=== PATIENT | female | born 1990 | race Two or more races ===

== ENCOUNTER 2024-01-09 06:17 | Day surgery (SDC) | payer BC, SELFPAY ==
[2024-01-04 07:11] VITALS: BMI 24.6
[2024-01-04 08:42] LABS: % Basophils 0.9 % (0-2); % Eosinophils 4.8 % (0-6); % Immature Granulocytes 0.2 % (0-0.5); % Lymphocytes 36.8 % (20.5-51.1); % Monocytes 7.5 % (1.7-9.3); % Neutrophils 49.8 % (42.2-75.2); Absolute Eosinophils 0.2 10^3/uL (0-0.7); Absolute Lymphocytes 1.7 10^3/uL (1.2-3.4); Absolute Monocytes 0.3 10^3/uL (0.1-0.6); Absolute Neutrophils 2.3 10^3/uL (1.4-6.5); Hematocrit 35.1 % (37.0-47.0); Hemoglobin 11.9 g/dL (12.0-16.0); Mean Corp Hgb Conc. 33.9 g/dL (33.0-37.0); Mean Corpuscular Hgb 28.4 pg (27.0-31.0); Mean Corpuscular Volume 83.8 fL (81.0-99.0); Mean Platelet Volume 10.8 fL (7.4-10.4); Nucleated Red Blood Cells % 0 %; Platelet Count 339 10^3/uL (130-400); Red Blood Cell Count 4.19 10^6/uL (4.20-5.40); Red Cell Dist. Width 13.3 % (11.5-14.5); White Blood Cell Count 4.6 10^3/uL (4.8-10.8)
[2024-01-04 09:36] LABS: Blood Urea Nitrogen 14 mg/dl (7-17); Calcium 9.9 mg/dl (8.4-10.2); Carbon Dioxide 26 mmol/L (22-30); Chloride 106 mmol/L (98-107); Estimated Creatinine Clearance 95 ml/min; Glucose 95 mg/dl (70-99); Potassium 4.9 mmol/L (3.5-5.1); Sodium 140 mmol/L (135-145); eGFR > 60.00
[2024-01-04 09:50] LABS: Beta HCG Quantitative < 2.39 mIU/ml
[2024-01-09] VITALS (10 sets, daily range): BP systolic 109–126; BP diastolic 65–96; BMI 24.6
[2024-01-09] MEDS: NORMOSOL-R 1000 IV (08:14)
[2024-01-09] MEDS: TYLENOL 1000 MG PO (08:15)
[2024-01-09] MEDS: NEURONTIN 100 MG PO (08:17)
--- NOTE | 2024-01-09 08:33 | W.SUR.PREOP ---
Pre-Operative Surgical Note
-
I have examined this patient prior to the performance of the scheduled procedure.
The patient's condition is unchanged from the time of the current History and
Physical and the patient is able to undergo the scheduled procedure.
--- NOTE | 2024-01-09 10:33 | W.IMMPOSTOP ---
Surgical Immed Post Op Note
-
Primary Surgeon: Jess Neff DO
[place] Roofer Helper: CRISTINA Valdez
Pre-op Diagnosis: Tubal factor infertility, bilateral hydrosalpinx
Post-op Diagnosis: same
Procedure Performed: Laparoscopic bilateral salpingectomy
Anesthesia Type: general ET, Dr. Rankin
Specimen / Cultures: bilateral fallopian tubes
Estimated Blood Loss: 10ml
Complications: none
Operative Findings: Normal appearing uterus, sounded to 8cm. Normal appearing ovaries bilaterally. Bilateral hydrosalpinx noted. No evidence of endometriosis.
Area of peritoneal puckering in cul de sac but no endometriosis lesions.
Counts correct times 2.
Stable to recovery.
[2024-01-09] MEDS: DEMEROL 12.5 MG IV (10:54)
== END 2024-01-09 12:55 | disposition home or self-care (01) ==
LOC: SDS 06:17
PROVIDERS: ATTENDING PHYSICIAN Obstetrics & Gynecology; FAMILY PHYSICIAN Internal Medicine
DX: N70.11 Chronic salpingitis (principal); N97.1 Female infertility of tubal origin
CPT/HCPCS: 58661; 88305; 80048; 84702; 85025; 86850; 86900; 86901; C1776

== ENCOUNTER → 2024-04-26 11:00 | Outpatient (REF) | payer BC, SELFPAY | LOC: CPAP 11:00 | PROVIDERS: ATTENDING PHYSICIAN Nurse Practitioner Family | DX: Z11.3 Encounter for screening for infections with a predominantly sexual mode of transmission (principal) | CPT/HCPCS: 36415; 87491; 87591 ==

== ENCOUNTER → 2024-04-27 10:31 | Outpatient (REF) | payer BC, SELFPAY ==
[2024-04-27 11:05] LABS: Urine Albumin Negative (Neg - Trace); Urine Bilirubin Negative (Negative); Urine Character Clear (Clear); Urine Color Yellow; Urine Glucose Negative (Negative); Urine Ketone Negative (Negative); Urine Leukocyte Trace (Negative); Urine Nitrite Negative (Negative); Urine Occult Blood Negative (Negative); Urine Urobilinogen Negative (Neg - 1+)
[2024-04-27 11:06] LABS: % Basophils 0.3 % (0-2); % Eosinophils 2.2 % (0-6); % Immature Granulocytes 0.4 % (0-0.5); % Lymphocytes 20.7 % (20.5-51.1); % Monocytes 7.9 % (1.7-9.3); % Neutrophils 68.5 % (42.2-75.2); Absolute Eosinophils 0.2 10^3/uL (0-0.7); Absolute Lymphocytes 1.9 10^3/uL (1.2-3.4); Absolute Monocytes 0.7 10^3/uL (0.1-0.6); Absolute Neutrophils 6.4 10^3/uL (1.4-6.5); Hematocrit 34.7 % (37.0-47.0); Hemoglobin 11.8 g/dL (12.0-16.0); Mean Corpuscular Hgb 28.1 pg (27.0-31.0); Mean Corpuscular Volume 82.6 fL (81.0-99.0); Mean Platelet Volume 9.7 fL (7.4-10.4); Nucleated Red Blood Cells % 0 %; Platelet Count 287 10^3/uL (130-400); Red Cell Dist. Width 13.7 % (11.5-14.5); White Blood Cell Count 9.3 10^3/uL (4.8-10.8)
[2024-04-27 11:16] LABS: Urine Squamous Cell >30 /LPF (Few)
[2024-04-27 11:17] LABS: Urine Bacteria Many (Negative)
[2024-04-27 12:19] LABS: Glycohemoglobin (HgbA1c) 5.3 % (4.0-5.6)
[2024-04-29 18:25] LABS: Hepatitis B Surface Antigen Negative (Negative)
[2024-04-29 20:02] LABS: Rubella Positive
== END ==
LOC: REG 10:31
PROVIDERS: ATTENDING PHYSICIAN Nurse Practitioner Family; FAMILY PHYSICIAN Internal Medicine
DX: Z32.01 Encounter for pregnancy test, result positive (principal)
CPT/HCPCS: 36415; 80055; 81003; 81015; 83036; 84702; 87389

== ENCOUNTER → 2024-05-20 13:24 | Outpatient (REF) | payer BC, SELFPAY | LOC: PNTC 13:24 | PROVIDERS: ATTENDING PHYSICIAN Obstetrics & Gynecology | DX: Z36.0 Encounter for antenatal screening for chromosomal anomalies (principal); Z36.82 Encounter for antenatal screening for nuchal translucency | CPT/HCPCS: 76801; 76813 ==

== ENCOUNTER → 2024-07-01 14:55 | Outpatient (REF) | payer BC, SELFPAY | LOC: CPAP 14:55 | PROVIDERS: ATTENDING PHYSICIAN Obstetrics & Gynecology | DX: O09.512 Supervision of elderly primigravida, second trimester (principal) | CPT/HCPCS: 87491; 87591 ==

== ENCOUNTER → 2024-07-11 08:36 | Outpatient (REF) | payer BC, SELFPAY | LOC: PNTC 08:36 | PROVIDERS: ATTENDING PHYSICIAN Obstetrics & Gynecology | DX: O09.519 Supervision of elderly primigravida, unspecified trimester (principal) | CPT/HCPCS: 76811 ==

== ENCOUNTER → 2024-07-22 15:37 | Outpatient (REF) | payer BC, SELFPAY ==
[2024-07-22 19:23] LABS: Hepatitis C Antibody Negative (Negative)
== END ==
LOC: REG 15:37
PROVIDERS: ATTENDING PHYSICIAN Obstetrics & Gynecology
DX: O09.512 Supervision of elderly primigravida, second trimester (principal)
CPT/HCPCS: 36415; 82105; 86803

== ENCOUNTER → 2024-08-31 09:57 | Outpatient (REF) | payer BC, SELFPAY ==
[2024-08-31 11:24] LABS: % Basophils 0.5 % (0-2); % Eosinophils 1.5 % (0-6); % Lymphocytes 17.6 % (20.5-51.1); % Monocytes 6.4 % (1.7-9.3); Absolute Basophils 0.1 10^3/uL (0-0.2); Absolute Eosinophils 0.2 10^3/uL (0-0.7); Absolute Immature Granulocytes 0.2 10^3/uL (0-0.05); Absolute Monocytes 0.7 10^3/uL (0.1-0.6); Absolute Neutrophils 8.1 10^3/uL (1.4-6.5); Hematocrit 30.3 % (37.0-47.0); Hemoglobin 10.5 g/dL (12.0-16.0); Mean Corp Hgb Conc. 34.7 g/dL (33.0-37.0); Mean Corpuscular Hgb 30.1 pg (27.0-31.0); Mean Corpuscular Volume 86.8 fL (81.0-99.0); Mean Platelet Volume 10.6 fL (7.4-10.4); Nucleated Red Blood Cells % 0 %; Platelet Count 233 10^3/uL (130-400); Red Blood Cell Count 3.49 10^6/uL (4.20-5.40); Red Cell Dist. Width 13.6 % (11.5-14.5); White Blood Cell Count 11.2 10^3/uL (4.8-10.8)
[2024-08-31 11:53] LABS: 1 Hour after 50gm 182 mg/dl
== END ==
LOC: REG 09:57
PROVIDERS: ATTENDING PHYSICIAN Student in an Organized Health Care Education/Training Program
DX: Z34.93 Encounter for supervision of normal pregnancy, unspecified, third trimester (principal)
CPT/HCPCS: 36415; 82950; 85025; 86780

== ENCOUNTER → 2024-09-02 14:58 | Outpatient (REF) | payer BC, SELFPAY | LOC: PNTC 14:58 | PROVIDERS: ATTENDING PHYSICIAN Obstetrics & Gynecology | DX: O09.519 Supervision of elderly primigravida, unspecified trimester (principal) | CPT/HCPCS: 76816 ==

== ENCOUNTER → 2024-09-09 06:42 | Outpatient (REF) | payer BC, SELFPAY ==
[2024-09-09 07:22] LABS: Glucose for Tolerance Test 94 mg/dl
[2024-09-09 09:10] LABS: Glucose for Tolerance Test 221 mg/dl
[2024-09-09 13:58] LABS: Glucose for Tolerance Test 171 mg/dl
[2024-09-09 14:05] LABS: Glucose for Tolerance Test 136 mg/dl
== END ==
LOC: REG 06:42
PROVIDERS: ATTENDING PHYSICIAN Obstetrics & Gynecology
DX: Z34.90 Encounter for supervision of normal pregnancy, unspecified, unspecified trimester (principal)
CPT/HCPCS: 36415; 82951

== ENCOUNTER → 2024-09-16 14:04 | Outpatient (REF) | payer BC, SELFPAY ==
--- NOTE | 2024-09-16 12:28 | PN.DIAED06 ---
Meal Plans - Regular
- Meal Plan
Diabetic Meal Plan Name: 1800 calories
Breakfast - Total Carbohydrate (grams): 45
Breakfast - Starch Carbohydrate: 0
Breakfast - Fruit Carbohydrate: 0
Breakfast - Milk Carbohydrate: 0
Breakfast - Nonstarchy Vegetables: Yes
Breakfast - Meat/Protein: 1
Breakfast - Fat: 2
Morning Snack - Total Carbohydrate (grams): 15
Morning Snack - Starch Carbohydrate: 0
Morning Snack - Fruit Carbohydrate: 0
Morning Snack - Milk Carbohydrate: 0
Morning Snack - Nonstarchy Vegetables: Yes
Morning Snack - Meat/Protein: 0.5
Morning Snack - Fat: 0
Lunch - Total Carbohydrate (grams): 45
Lunch - Starch Carbohydrate: 0
Lunch - Fruit Carbohydrate: 0
Lunch - Milk Carbohydrate: 0
Lunch - Nonstarchy Vegetables: Yes
Lunch - Meat/Protein: 3
Lunch - Fat: 1
Afternoon Snack - Total Carbohydrate (grams): 15
Afternoon Snack - Starch Carbohydrate: 0
Afternoon Snack - Fruit Carbohydrate: 0
Afternoon Snack - Milk Carbohydrate: 0
Afternoon Snack - Nonstarchy Vegetables: Yes
Afternoon Snack - Meat/Protein: 0.5
Afternoon Snack - Fat: 0
Dinner - Total Carbohydrate (grams): 45
Dinner - Starch Carbohydrate: 0
Dinner - Fruit Carbohydrate: 0
Dinner - Milk Carbohydrate: 0
Dinner - Nonstarchy Vegetables: Yes
Dinner - Meat/Protein: 3
Dinner - Fat: 2
Evening Snack - Total Carbohydrate (grams): 15
Evening Snack - Starch Carbohydrate: 0
Evening Snack - Fruit Carbohydrate: 0
Evening Snack - Milk Carbohydrate: 0
Evening Snack - Nonstarchy Vegetables: Yes
Evening Snack - Meat/Protein: 0
Evening Snack - Fat: 0
Meal Plan - Gestational
- Breakfast
Gestational Diabetes Meal Plan Name: 1800 calories
Breakfast - Total Carbohydrate (grams): 30
Breakfast - Starch Carbohydrate: 1
Breakfast - Fruit Carbohydrate: 0
Breakfast - Milk Carbohydrate: 1
Breakfast - Nonstarchy Vegetables: Yes
Breakfast - Meat/Protein: 1
Breakfast - Fat: 2
- Morning Snack
Morning Snack - Total Carbohydrate (grams): 30
Morning Snack - Starch Carbohydrate: 1
Morning Snack - Fruit Carbohydrate: 0
Morning Snack - Milk Carbohydrate: 1
Morning Snack - Nonstarchy Vegetables: Yes
Morning Snack - Meat/Protein: 0.5
Morning Snack - Fat: 0
- Lunch
Lunch - Total Carbohydrate (grams): 45
Lunch - Starch Carbohydrate: 2
Lunch - Fruit Carbohydrate: 1
Lunch - Milk Carbohydrate: 0
Lunch - Nonstarchy Vegetables: Yes
Lunch - Meat/Protein: 2
Lunch - Fat: 1
- Afternoon Snack
Afternoon Snack - Total Carbohydrate (grams): 30
Afternoon Snack - Starch Carbohydrate: 1
Afternoon Snack - Fruit Carbohydrate: 1
Afternoon Snack - Milk Carbohydrate: 0
Afternoon Snack - Nonstarchy Vegetables: Yes
Afternoon Snack - Meat/Protein: 1
Afternoon Snack - Fat: 0
- Dinner
Dinner - Total Carbohydrate (grams): 45
Dinner - Starch Carbohydrate: 2
Dinner - Fruit Carbohydrate: 0
Dinner - Milk Carbohydrate: 1
Dinner - Nonstarchy Vegetables: Yes
Dinner - Meat/Protein: 2
Dinner - Fat: 2
- Evening Snack
Evening Snack - Total Carbohydrate (grams): 30
Evening Snack - Starch Carbohydrate: 1
Evening Snack - Fruit Carbohydrate: 0
Evening Snack - Milk Carbohydrate: 1
Evening Snack - Nonstarchy Vegetables: Yes
Evening Snack - Meat/Protein: 1
Evening Snack - Fat: 1
--- NOTE | 2024-09-17 11:36 | PN.DE ---
Diabetes Education
- -
09/16/2024 GESTATIONAL DIABETES CONSULT
Met with Ms. Christianson and her today, G1, P0, with JOHN 11/28/[birth year]24 here today for medical nutrition therapy.
Explained glucose metabolism in body and what occurs during to cause increase blood sugar. Discussed importance of keeping BS well controlled to avoid complications to the baby during and after (macrosomia, hypoglycemia). Explained
to Kenia that she is at increased risk of developing T2DM in the future, she states both of her parents have diabetes.
Discussed macronutrients, provided with 1800 gustavo GDM meal plan, she has a good understanding of healthy nutrition and has been trying to eat healthy since finding out that she has GDM with this .
Discussed physical activity, however, she is currently not exercising. Emphasized importance of physical activity and it's impact on blood glucose levels.
She plans to take walks after lunch.
Kenia presented to the appointment with an Accu-Chek glucometer she obtained from her parents, She did contact [facility] [employer] and she is waiting on faxed approval of her account, she states our office is to receive a fax from [facility] [employer] or she will
contact us to place an order for supplies. She states that [employer] is the preferred brand. Reviewed proper testing technique, testing sites and testing pattern. She is aware to test FBS and 2 hr pp each meal. Expected results for FBS <95 mg/dl
and 2 hr pp <120 mg/dl. Review of her glucose log shows a range of FBG 95 and 2 hrs PP of 150's.
A new glucose log sheet was provided for her to continue recording results. Kenia will send a 4-day meal log with all her FBG and 2hr Post prandial glucose numbers to this office for review. In addition, she will send all her glucose readings to
Petrona at [facility] every Monday.
She was encouraged to reach out should she require insulin.
== END ==
LOC: DES 14:04
PROVIDERS: ATTENDING PHYSICIAN Obstetrics & Gynecology
DX: O24.419 Gestational diabetes mellitus in pregnancy, unspecified control (principal)
CPT/HCPCS: 99078

== ENCOUNTER → 2024-09-30 14:54 | Outpatient (REF) | payer BC, SELFPAY | LOC: PNTC 14:54 | PROVIDERS: ATTENDING PHYSICIAN Obstetrics & Gynecology | DX: O24.419 Gestational diabetes mellitus in pregnancy, unspecified control (principal) | CPT/HCPCS: 76816 ==

== ENCOUNTER → 2024-10-16 15:14 | Outpatient (REF) | payer BC, SELFPAY | LOC: PNTC 15:14 | PROVIDERS: ATTENDING PHYSICIAN Obstetrics & Gynecology | DX: O24.410 Gestational diabetes mellitus in pregnancy, diet controlled (principal); O09.513 Supervision of elderly primigravida, third trimester | CPT/HCPCS: 59025; 76815 ==

== ENCOUNTER → 2024-10-21 14:00 | Outpatient (REF) | payer BC, SELFPAY | LOC: PNTC 14:00 | PROVIDERS: ATTENDING PHYSICIAN Obstetrics & Gynecology | DX: O09.513 Supervision of elderly primigravida, third trimester (principal); O24.410 Gestational diabetes mellitus in pregnancy, diet controlled | CPT/HCPCS: 59025; 76815 ==

== ENCOUNTER → 2024-10-28 15:09 | Outpatient (REF) | payer BC, SELFPAY | LOC: PNTC 15:09 | PROVIDERS: ATTENDING PHYSICIAN Obstetrics & Gynecology | DX: O09.513 Supervision of elderly primigravida, third trimester (principal); O24.410 Gestational diabetes mellitus in pregnancy, diet controlled | CPT/HCPCS: 59025; 76816 ==

== ENCOUNTER → 2024-11-04 15:05 | Outpatient (REF) | payer BC, SELFPAY | LOC: PNTC 15:05 | PROVIDERS: ATTENDING PHYSICIAN Obstetrics & Gynecology | DX: O24.410 Gestational diabetes mellitus in pregnancy, diet controlled (principal); O09.513 Supervision of elderly primigravida, third trimester | CPT/HCPCS: 59025; 76815 ==

== ENCOUNTER → 2024-11-08 14:01 | Outpatient (REF) | payer BC, SELFPAY | LOC: CLAB 14:01 | PROVIDERS: ATTENDING PHYSICIAN Obstetrics & Gynecology | DX: Z36.85 Encounter for antenatal screening for Streptococcus B (principal); O09.513 Supervision of elderly primigravida, third trimester | CPT/HCPCS: 87070 ==

== ENCOUNTER → 2024-11-12 17:05 | Outpatient (REF) | payer BC, SELFPAY | LOC: PNTC 17:05 | PROVIDERS: ATTENDING PHYSICIAN Obstetrics & Gynecology | DX: O24.410 Gestational diabetes mellitus in pregnancy, diet controlled (principal); O09.513 Supervision of elderly primigravida, third trimester | CPT/HCPCS: 59025; 76815 ==

== ENCOUNTER → 2024-11-18 15:04 | Outpatient (REF) | payer BC, SELFPAY | LOC: PNTC 15:04 | PROVIDERS: ATTENDING PHYSICIAN Obstetrics & Gynecology | DX: O24.410 Gestational diabetes mellitus in pregnancy, diet controlled (principal); O09.513 Supervision of elderly primigravida, third trimester | CPT/HCPCS: 59025; 76815 ==

== ENCOUNTER → 2024-11-25 15:06 | Outpatient (REF) | payer BC, SELFPAY | LOC: PNTC 15:06 | PROVIDERS: ATTENDING PHYSICIAN Obstetrics & Gynecology | DX: O24.410 Gestational diabetes mellitus in pregnancy, diet controlled (principal); O09.513 Supervision of elderly primigravida, third trimester | CPT/HCPCS: 59025; 76816 ==

== ENCOUNTER 2024-11-26 19:37 | Inpatient (IN) | payer BC, SELFPAY ==
[2024-11-26 21:05] LABS: Glucose - Point of Care 92 mg/dl (70-99)
[2024-11-26] MEDS: CYTOTEC 50 MICROGRAM PO (21:33)
[2024-11-26 21:44] VITALS: BP 119/81; BMI 27.3
[2024-11-26 21:46] LABS: % Basophils 0.5 % (0-2); % Eosinophils 1.3 % (0-6); % Immature Granulocytes 0.6 % (0-0.5); % Lymphocytes 23.8 % (20.5-51.1); % Monocytes 7.8 % (1.7-9.3); Absolute Basophils 0.1 10^3/uL (0-0.2); Absolute Eosinophils 0.1 10^3/uL (0-0.7); Absolute Immature Granulocytes 0.1 10^3/uL (0-0.05); Absolute Lymphocytes 2.3 10^3/uL (1.2-3.4); Absolute Monocytes 0.8 10^3/uL (0.1-0.6); Absolute Neutrophils 6.4 10^3/uL (1.4-6.5); Hematocrit 34.6 % (37.0-47.0); Hemoglobin 11.6 g/dL (12.0-16.0); Mean Corp Hgb Conc. 33.5 g/dL (33.0-37.0); Mean Corpuscular Hgb 26.7 pg (27.0-31.0); Mean Corpuscular Volume 79.7 fL (81.0-99.0); Mean Platelet Volume 10.4 fL (7.4-10.4); Nucleated Red Blood Cells % 0 %; Platelet Count 252 10^3/uL (130-400); Red Blood Cell Count 4.34 10^6/uL (4.20-5.40); Red Cell Dist. Width 14.5 % (11.5-14.5); White Blood Cell Count 9.8 10^3/uL (4.8-10.8)
[2024-11-27] MEDS: LR 1000 IV ×4 (00:56→18:21)
[2024-11-27 01:05] LABS: Glucose - Point of Care 84 mg/dl (70-99)
[2024-11-27] MEDS: CYTOTEC PO ×2 (03:01→19:47)
[2024-11-27] MEDS: CYTOTEC 25 MICROGRAM PO (03:08)
[2024-11-27 05:01] LABS: Glucose - Point of Care 89 mg/dl (70-99)
[2024-11-27 08:31] LABS: Glucose - Point of Care 88 mg/dl (70-99)
[2024-11-27] MEDS: CYTOTEC 50 MICROGRAM PO ×3 (08:37→19:47)
[2024-11-27 12:41] LABS: Glucose - Point of Care 83 mg/dl (70-99)
[2024-11-27 16:38] LABS: Glucose - Point of Care 88 mg/dl (70-99)
[2024-11-27] MEDS: STADOL 1 MG IV ×2 (18:22→20:32)
[2024-11-27 20:26] LABS: Glucose - Point of Care 88 mg/dl (70-99)
[2024-11-28 00:38] LABS: Glucose - Point of Care 85 mg/dl (70-99)
[2024-11-28] MEDS: LR 1000 IV (01:00)
[2024-11-28] MEDS: BICITRA 30 ML PO (02:59)
[2024-11-28] MEDS: ANCEF 10 IV (02:59)
[2024-11-28] MEDS: TYLENOL 1000 MG PO (02:59)
[2024-11-28 03:59] LABS: Cord ABG Comment CORD BLOOD
[2024-11-28 04:01] LABS: B.E. Cord ABG -8.1 mMOL/L; HCO3 Cord ABG 22.6 mmol/L; O2 Saturation % Cord ABG 6.6 %; PCO2 Cord ABG 65 mmHg; PO2 Cord ABG 7 mmHg; pH Cord ABG 7.15
[2024-11-28 04:04] LABS: HCO3 Cord ABG 18.8 mmol/L; O2 Saturation % Cord ABG 28.3 %; PCO2 Cord ABG 46 mmHg; PO2 Cord ABG 22 mmHg; pH Cord ABG 7.22
[2024-11-28] MEDS: TORADOL 15 MG IV ×3 (07:15→19:30)
[2024-11-28] MEDS: PRENATAL PLUS 1 TABLET PO (08:06)
[2024-11-28] MEDS: TYLENOL 650 MG PO (08:07)
--- NOTE | 2024-11-28 08:09 | W.PN.ANS.POP ---
Anesthesia Post Operative
- Anesthesia Post Op Note
Vital Signs Stable-See Nursing Note: Yes
Airway Patent: Yes
Adequate Pain Control: Yes
Change in Mental Status: No
Current Postoperative Nausea & Vomiting: No
Anesthesia Complications: No
General Anesthetic Recall: No
Unplanned Admission: No
Post Op Hydration Adequate: Yes
[2024-11-28] MEDS: MYLICON 80 MG PO (09:56)
[2024-11-28] MEDS: SENOKOT-S 1 TABLET PO (14:43)
[2024-11-29] MEDS: TORADOL 15 MG IV (01:30)
[2024-11-29] MEDS: MYLICON 80 MG PO (01:48)
[2024-11-29] MEDS: TYLENOL 650 MG PO ×4 (05:05→19:50)
[2024-11-29 06:16] LABS: Hematocrit 27.5 % (37.0-47.0); Hemoglobin 9.3 g/dL (12.0-16.0); Mean Corp Hgb Conc. 33.8 g/dL (33.0-37.0); Mean Corpuscular Hgb 27.4 pg (27.0-31.0); Mean Corpuscular Volume 81.1 fL (81.0-99.0); Mean Platelet Volume 10.6 fL (7.4-10.4); Platelet Count 220 10^3/uL (130-400); Red Blood Cell Count 3.39 10^6/uL (4.20-5.40); Red Cell Dist. Width 14.6 % (11.5-14.5); White Blood Cell Count 12.9 10^3/uL (4.8-10.8)
[2024-11-29] MEDS: PRENATAL PLUS 1 TABLET PO (08:36)
[2024-11-29] MEDS: MOTRIN 600 MG PO ×3 (09:11→21:14)
[2024-11-29] MEDS: SENOKOT-S 1 TABLET PO (15:10)
[2024-11-29 17:50] LABS: Syphilis/T. pallidum Ab Reflex Negative (Negative)
[2024-11-30] MEDS: TYLENOL 650 MG PO ×3 (00:08→17:32)
[2024-11-30] MEDS: MOTRIN 600 MG PO ×3 (03:14→16:41)
[2024-11-30] MEDS: PERCOCET 5/325 1 TABLET PO ×3 (04:07→22:05)
[2024-11-30] MEDS: PRENATAL PLUS 1 TABLET PO (09:22)
[2024-11-30] MEDS: SENOKOT-S 1 TABLET PO (09:22)
[2024-11-30] MEDS: FEOSOL 325 MG PO (09:22)
[2024-12-01] MEDS: MOTRIN 600 MG PO ×2 (01:46→08:34)
[2024-12-01] MEDS: TYLENOL 650 MG PO (05:51)
[2024-12-01] MEDS: SENOKOT-S 1 TABLET PO (08:34)
[2024-12-01] MEDS: FEOSOL 325 MG PO (08:34)
[2024-12-01] MEDS: PRENATAL PLUS 1 TABLET PO (08:34)
--- NOTE | 2024-12-01 09:52 | W.DS.TRANS ---
DC Summary - Senior Business Analyst
-
Discharge Instructions:
Discharge Diagnosis/Procedures 40 wks delivered, gestational diabetes
, diet controlled, IVF , elective
induction of labor, cervical ripening, Cook
balloon catheter placement, persistent category
2 tracing/nonreassuring heart rate pattern
remote from delivery/ intolerance of labor
. Primary low transverse section.
Diet Regular
Activity No strenuous activity
Driving Restrictions No driving for 2 weeks
Bathing Restrictions OK to Shower
Instructions:
Stand-Alone Forms: LDRP Delivery
Changes to Home Medications: No
Discharge Medications:
DC Medications w/original date entered in [facility]
folic acid 1 mg tablet 1 mg PO DAILY 01/04/24
[id number]-[id number]-[id number] 1 mg tablet 1 tab PO DAILY 01/04/24
acetaminophen 325 mg tablet 650 mg (2 x 325 mg) PO Q4HPRN PRN mild pain #0 tabs 11/28/24
ibuprofen 600 mg tablet 600 mg PO Q6HPRN PRN cramps #0 tabs 11/28/24
oxycodone-acetaminophen 5 mg-325 mg tablet 1 tab PO Q4HPRN PRN moderate pain #10 tabs 12/01/24
Home Medication Changes
Pending Results: Yes (placental pathology)
Total time spent discharging patient (in min): 30
[2024-12-01] MEDS: PERCOCET 5/325 1 TABLET PO (11:53)
== END 2024-12-01 12:26 | disposition home or self-care (01) | DRG 788 ==
LOC: LDRP 19:37
PROVIDERS: Obstetrics & Gynecology; ADMITTING PHYSICIAN Obstetrics & Gynecology
PROC: 3E0P7VZ Introduction of Hormone into Female Reproductive, Via Natural or Artificial Opening (ICD-10-PCS; 2024-11-26)
PROC: 0U7C7DJ Dilation of Cervix with Intraluminal Device, Temporary, Via Natural or Artificial Opening (ICD-10-PCS; 2024-11-27)
PROC: 10D00Z1 Extraction of Products of Conception, Low, Open Approach (ICD-10-PCS; 2024-11-28)
DX: O24.420 Gestational diabetes mellitus in childbirth, diet controlled (principal); O76 Abnormality in fetal heart rate and rhythm complicating labor and delivery; Z3A.39 39 weeks gestation of pregnancy; Z37.0 Single live birth
CPT/HCPCS: 88307; 82803; 82962; 85025; 85027; 86780; 86850; 86900; 86901

== ENCOUNTER → 2025-01-25 07:26 | Outpatient (REF) | payer BC, SELFPAY ==
[2025-01-25 07:57] LABS: Glucose for Tolerance Test 94 mg/dl
[2025-01-25 09:42] LABS: Glucose for Tolerance Test 127 mg/dl
[2025-01-25 10:30] LABS: Glucose for Tolerance Test 120 mg/dl
== END ==
LOC: REG 07:26
PROVIDERS: ATTENDING PHYSICIAN Obstetrics & Gynecology; FAMILY PHYSICIAN Internal Medicine
DX: O24.419 Gestational diabetes mellitus in pregnancy, unspecified control (principal)
CPT/HCPCS: 36415; 82951